=== PATIENT | female | born 1940 | race Caucasian/White ===

== ENCOUNTER 2018-09-20 09:10 | Inpatient (IN) ==
[2018-09-20] MEDS ORDERED: DILTIAZEM 50 MG/10 ML VIAL IV STA (09:38)
[2018-09-20] MEDS ORDERED: ENOXAPARIN 100 MG/ML SYRINGE SUBCUT STA (09:38)
[2018-09-20] MEDS ORDERED: DILTIAZEM 25 MG/5 ML VIAL IV ONE (09:40)
[2018-09-20] MEDS ORDERED: ENOXAPARIN 80 MG/0.8 ML SYRINGE SUBCUT ONE (09:58)
[2018-09-20 10:04] LABS: Basophils % 0.5 % (0.0-0.8); Eosinophils # 0.1 10*3/uL (0.0-0.87); Eosinophils % 1.8 % (0.00-10.9); Hematocrit 41.7 VOL% (35.7-47.0); Hemoglobin 13.3 GM/DL (12.0-16.0); Immature Granulocytes % 0.4 %; Immature Granulocytes Absolute 0.03 #; Lymphocytes # 1.8 10*3/uL (1.4-4.0); Lymphocytes % 23.1 % (21.3-54.2); Mean Corpuscular HGB Conc 31.9 GM/DL (32-36); Mean Corpuscular Hemoglobin 29 PG (27-34); Mean Corpuscular Volume 90.7 FL (87-102); Mean Platelet Volume 9.8 FL (9.6-12.0); Monocytes % 12.1 % (1.7-12.7); Neutrophils # 4.9 10*3/uL (1.4-7.4); Neutrophils % 62.1 % (38.7-73.9); Platelet Count 228 T/CUMM (130-400); Red Cell Distribution Width 12.5 % (9.3-17.3); White Blood Count 7.9 T/CUMM (4-12)
[2018-09-20 10:25] LABS: Albumin 3.6 G/DL (3.4-5.0); Bilirubin,Total 1.6 MG/DL (0.2-1.0); Osmolality,Calculated 281.5 MOS/KG (273-304); Potassium 3.6 MMOL/L (3.5-5.1); Total Protein 6.8 G/DL (6.4-8.3)
[2018-09-20] MEDS ORDERED: ONDANSETRON 4 MG/2 ML VIAL IV PRN (13:15)
[2018-09-20] MEDS ORDERED: DOCUSATE SODIUM 100 MG CAPSULE PO PRN (13:15)
[2018-09-20] MEDS ORDERED: ACETAMINOPHEN 325 MG TABLET PO PRN (13:15)
[2018-09-20] MEDS ORDERED: dilTIAZem Drip 125 MG/125 ML PREMIX IV SCH (14:00)
[2018-09-20] MEDS ORDERED: DILTIAZEM CD 120 MG CAPSULE PO SCH (21:00)
[2018-09-20] MEDS: APIXABAN 5 MG TABLET PO SCH (21:06)
[2018-09-20] MEDS: FLECAINIDE 50 MG TABLET PO SCH (21:06)
[2018-09-20] MEDS: METOPROLOL TARTRATE 25 MG TABLET PO SCH (21:07)
[2018-09-21 01:55] LABS: Basophils # 0.1 10*3/uL (0.0-0.2); Basophils % 0.6 % (0.0-0.8); Eosinophils # 0.2 10*3/uL (0.0-0.87); Eosinophils % 2.5 % (0.00-10.9); Hemoglobin 11.9 GM/DL (12.0-16.0); Immature Granulocytes % 0.3 %; Immature Granulocytes Absolute 0.02 #; Lymphocytes # 1.9 10*3/uL (1.4-4.0); Mean Corpuscular HGB Conc 31.3 GM/DL (32-36); Mean Corpuscular Hemoglobin 29 PG (27-34); Mean Corpuscular Volume 91.3 FL (87-102); Monocytes % 13.1 % (1.7-12.7); Neutrophils # 4.7 10*3/uL (1.4-7.4); Neutrophils % 59.5 % (38.7-73.9); Platelet Count 239 T/CUMM (130-400); Red Blood Count 4.16 MC/CUMM (3.8-5.5); Red Cell Distribution Width 12.6 % (9.3-17.3); White Blood Count 7.9 T/CUMM (4-12)
[2018-09-21 02:19] LABS: Calcium 8.4 MG/DL (8.5-10.1); Osmolality,Calculated 276.7 MOS/KG (273-304); Potassium 3.4 MMOL/L (3.5-5.1); Risk Ratio 2.08; VLDL CHOLESTEROL 15.8 MG/DL
[2018-09-21] MEDS ORDERED: LEVOTHYROXINE 75 MCG TABLET PO SCH (06:30)
[2018-09-21] MEDS ORDERED: ASPIRIN EC 81 MG TABLET PO SCH (09:00)
[2018-09-21] MEDS ORDERED: NON-FORMULARY MEDICATION (Omeprazole [Omeprazole] 20 MG) PO SCH (09:00)
[2018-09-21] MEDS ORDERED: CHOLECALCIFEROL 1,000 UNIT TABLET PO SCH (09:00)
[2018-09-21] MEDS ORDERED: ENOXAPARIN 80 MG/0.8 ML SYRINGE SUBCUT SCH (09:00)
[2018-09-21] MEDS ORDERED: LOSARTAN 25 MG TABLET PO SCH (09:00)
[2018-09-21] MEDS ORDERED: ATORVASTATIN 10 MG TABLET PO SCH (09:00)
[2018-09-21] MEDS ORDERED: PANTOPRAZOLE 40 MG TABLET PO SCH (09:00)
[2018-09-21] MEDS: APIXABAN 5 MG TABLET PO SCH (09:05)
[2018-09-21] MEDS: FLECAINIDE 50 MG TABLET PO SCH (09:05)
[2018-09-21] MEDS: METOPROLOL TARTRATE 25 MG TABLET PO SCH (09:06)
[2018-09-21] MEDS ORDERED: POTASSIUM CHLORIDE 10 MEQ TABLET PO SCH (09:30)
[2018-09-21 12:14] VITALS: BP 119/55
== END 2018-09-21 13:30 | disposition home or self-care (01) | DRG 310 ==
LOC: N.ED 09:10 → N.EDINP 13:15 → N.2W 14:35 → N.TELEN 16:47
PROVIDERS: ADMIT Internal Medicine Infectious Disease; ATTEND Internal Medicine Infectious Disease